=== PATIENT | female | born 1955 | race African-American/Black ===

== ENCOUNTER 2017-11-23 13:02 | Emergency (ER) | payer MEDICAID ==
[~2017-11-23] VITALS: Ht 170.2 cm; Wt 114.3 kg
[~2017-11-23 13:02] MED LIST: BENAZEPRIL HCL20 MG PO; BENAZEPRIL HCL40 MG PO
[2017-11-23] MEDS ORDERED: LIPITOR80 MG ORAL (13:37)
[2017-11-23] MEDS ORDERED: LASIX20 M1 ORAL (13:37)
[2017-11-23] MEDS ORDERED: CARVEDILOL3.125 MG ORAL (13:37)
[2017-11-23] MEDS ORDERED: ISOSORBIDE MONO60 M1 PO (13:37)
[2017-11-23] MEDS ORDERED: ADALAT20 MG ORAL (13:37)
[2017-11-23] MEDS ORDERED: VITAMIN D400 INTLU ORAL (13:37)
[2017-11-23] MEDS ORDERED: MULTIVITAMINS1 EAC2 ORAL (13:37)
[2017-11-23] MEDS ORDERED: ASPIRIN EC81 MG ORAL (13:37)
[2017-11-23] MEDS ORDERED: CLOPIDOGREL75 MG ORAL (13:37)
[2017-11-23] MEDS ORDERED: LISINOPRIL40 MG ORAL (13:37)
--- NOTE | 2017-11-23 13:41 | Emergency Room Report ---
History of Present Illness General Chief Complaint: General Complaint Source: Patient Present Illness HPI Patient presents with left upper throat pain after swallowing a bottle cap a few days ago. The pain is minimal at this time however she does feel scratchiness in her throat. There's no fevers. She's able to he can swallow food. She's worried that the bottle cap might be stuck. Pain rated 6/10, worsened with swallowing, not radiating. No vomiting, diarrhea, chest pain. The pain is fairly high up on the left-hand side of her throat. H/O sleep apnea and post 3 stents. Allergies: Coded Allergies: No Known Allergies (Verified , 06/13/10) Patient History Past Medical History: see triage record Past Surgical History: PTCA Social History: Denies: smoking Social History Narrative at home Last Menstrual Period: Post Now: No Reviewed Nursing Documentation: PMH: Agreed, PSxH: Agreed Nursing Documentation-PMH Hx Cardiac Problems: Yes - 2 cardiac stents Hx Hypertension: Yes Review of Systems All Other Systems: negative except mentioned in HPI Physical Exam Vital Signs Date Time Temp Pulse Resp B/P (MAP) Pulse Ox O2 Delivery O2 Flow Rate FiO2 11/23/17 13:18 98.8 75 18 156/69 98 Room Air Sp02 EP Interpretation: reviewed, normal General Appearance: well appearing, no apparent distress, GCS 15, obese Head: normocephalic Eyes: bilateral eye normal inspection, bilateral eye PERRL ENT: moist mucus membranes, pharyngeal erythema - minimal L upper throat Neck: supple Respiratory: lungs clear, normal breath sounds Cardiovascular #1: regular rate, rhythm Cardiovascular #2: 2+ radial (R) Gastrointestinal: normal inspection, normal bowel sounds, non tender, no mass, non-distended, overweight Musculoskeletal: back normal, gait/station normal, normal range of motion Neurologic: alert, oriented x3, grossly normal Psychiatric: mood/affect normal Skin: normal inspection, warm/dry Medical Decision Making Diagnostic Impression: Primary Impression: Abrasion of pharynx Qualified Codes: S10.11XA - Abrasion of throat, initial encounter ER Course Patient presents with foreign body sensation after swallowing a bottle. Differential includes a pharyngeal abrasion, foreign body ingestion, esophageal foreign body amongst others. As able to swallow, doubt significant obstruction. Evaluation will be with a Gastrografin swallow. The patient will be treated with amoxicillin, Mylanta and viscous lidocaine. Nature and character of pain against cardiac cause. Initial CXR negative. Gastrograffin then fills esophagus. Repeat CXR is clear and no FB present. Pain is improved. Patient stable for outpatient observation and treatment. Chest X-Ray Diagnostic Results Chest X-Ray Diagnostic Results #1: Chest X-Ray Ordered: Yes # of Views/Limited/Complete: 1 View Indication: Other EP Interpretation: Yes Interpretation: no consolidation, no effusion, no pneumothorax Impression: Other Electronically Signed by: Electronically signed by Isauro Glasgow MD Chest X-Ray Diagnostic Results #2: Chest X-Ray Ordered: Yes # of Views/Limited/Complete: 1 View Indication: Other EP Interpretation: Yes Interpretation: no consolidation, no effusion, no pneumothorax, other - gastrograffin in esophagus Impression: Other Electronically Signed by: Electronically signed by Isauro Glasgow MD Chest X-Ray Diagnostic Results #3: Chest X-Ray Ordered: Yes # of Views/Limited/Complete: 2 View Indication: Other EP Interpretation: Yes Interpretation: no consolidation, no effusion, no pneumothorax, no acute cardiopulmonary disease Impression: No acute disease Electronically Signed by: Electronically signed by Isauro Glasgow MD Last Vital Signs Date Time Temp Pulse Resp B/P (MAP) Pulse Ox O2 Delivery O2 Flow Rate FiO2 11/23/17 18:00 98.3 71 16 149/78 96 Room Air Status: improved Disposition: HOME, SELF-CARE Condition: Improved Scripts Lidocaine HCl 2% Viscous (Lidocaine HCl 2% Viscous) 100 Ml Solution 10 ML ORAL QID Y for For Pain, #60 ML Prov: Isauro Glasgow M.D. 11/23/17 Mag Hydrox/Al Hydrox/Simeth (MAALOX MAXIMUM STRENGTH SUSP) 355 Ml Oral.susp 30 ML PO Q6HR Y for For Pain, #240 ML Prov: Isauro Glasgow M.D. 11/23/17 Amoxicillin* (AMOXIL*) 500 Mg Capsule 500 MG ORAL THREE TIMES A DAY, #21 CAP Prov: Isauro Glasgow M.D. 11/23/17 Isauro Glasgow M.D. Nov 23, 2017 13:41
[2017-11-23] MEDS ORDERED: Mylanta II UD 30ml ORAL ONE (13:45)
[2017-11-23] MEDS ORDERED: Lidocaine 2% Visc 15ml soln ORAL ONE (13:45)
[2017-11-23] MEDS ORDERED: MAALOX MAXIMUM355 M1 PO (16:54)
[2017-11-23] MEDS ORDERED: AMOXICILLIN500 MG ORAL (16:54)
[2017-11-23] MEDS ORDERED: LIDOCAINE VISC100 ML ORAL (16:54)
[2017-11-23 17:04] VITALS: BP 149/78
[2017-11-23 18:00] VITALS: BP 149/78
--- NOTE | 2017-11-26 14:54 | Diagnostic Imaging Report ---
Indication: Foreign body of the chest Technique: AP chest before and after swallowing Gastrografin. Comparison: None Findings: Cardiac silhouette is prominent. There is interstitial prominence. Contrast is noted in the esophagus but is otherwise not adequately evaluated. No radiodense foreign body is identified. Impression: No radiodense foreign body. Contrast noted in the esophagus otherwise not adequately evaluated. Esophagram or endoscopy recommended for further evaluation as indicated. Cardiomegaly with mild interstitial prominence, acute indeterminate.
--- NOTE | 2017-11-26 14:54 | Diagnostic Imaging Report ---
Indication: Chest pain Technique: XRAY Chest 2v Comparison: 11/23/2017 Findings: Cardiac silhouette is prominent. There is interstitial prominence. Degenerative changes of the spine are noted. No radiodense foreign body is identified. Atherosclerotic changes are seen. Impression: Acuity indeterminant interstitial prominence. Mild interstitial edema or infiltrates not excluded. Clinical correlation/follow-up recommended. Atherosclerotic changes.
== END 2017-11-23 18:00 | disposition home or self-care (01) ==
LOC: EMR 13:50
DX: S10.11XA Abrasion of throat, initial encounter (principal); X58.XXXA Exposure to other specified factors, initial encounter; Y92.9 Unspecified place or not applicable; I10 Essential (primary) hypertension; Z95.5 Presence of coronary angioplasty implant and graft
CPT/HCPCS: 71045; 71046; 99284